=== PATIENT | male | born 1960 ===

== ENCOUNTER 2017-12-10 16:58 | Inpatient (IN) | payer BC ==
[2017-12-10 17:04] VITALS: BMI 32.9
[2017-12-10] MEDS ORDERED: Sodium Chloride 0.9% 1,000 ML IV STA (17:25)
[2017-12-10] MEDS ORDERED: Gentamicin 5 MG in Sodium Chloride 0.9% 100 ML IVPB STA (17:28)
[2017-12-10] MEDS ORDERED: Vancomycin 1gm in NS 250ml 1 GM/250 ML BAG IVPB STA (17:28)
--- NOTE | 2017-12-10 17:33 | ED PDOC ---
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 States that he saw his doctor 4 days ago and was Rx amoxicillin, then on Wednesday developed a red itchy rash to his body and arms. Otherwise denies any CP, SOB, headache, neck pain, back pain, V/D, urinary symptoms. He adds that he called his pmd today for follow up and was advised to go to the ER for further evaluation. Has no other complaints. PMD [facility] Past Medical History - Infectious Disease Hx of Infectious Diseases: None - Tetanus Immunization Tetanus Immunization: Unknown - Cardiac Hx Hyperlipemia: Yes - Hematological/Oncological Hx Cancer: Yes (SKIN) - Psychiatric Hx Depression: No Hx Emotional Abuse: No Hx Physical Abuse: No Hx Substance Use: No - Suicidal Assessment Feels Threatened In Home Enviroment: No Family/Social History Family/Social History: Unknown Family HX Hx Alcohol Use: No Hx Substance Use: No Hx Substance Use Treatment: No Allergies/Home Meds Allergies/Adverse Reactions: Allergies No Known Allergies Allergy (Verified 11/01/13 12:01) Review of Systems - Review of Systems Constitutional: Fevers. absent: Fatigue ENT: Sore Throat. absent: Rhinorrhea, Sinus Congestion Respiratory: Cough. absent: SOB Cardiovascular: absent: Chest Pain, Palpitations Gastrointestinal: absent: Abdominal Pain, Diarrhea, Nausea, Vomiting Genitourinary Male: absent: Dysuria, Frequency, Hematuria Musculoskeletal: absent: Arthralgias, Back Pain, Neck Pain Skin: absent: Rash, Pruritis Neurological: absent: Headache, Dizziness Physical Exam Vital Signs Temp Pulse Resp BP Pulse Ox 12/10/17 17:04 99.0 F 96 H 18 118/77 99 Temperature: Afebrile Blood Pressure: Normal Pulse: Regular Respiratory Rate: Normal Appearance: Positive for: Well-Appearing, Non-Toxic, Comfortable Pain Distress: None (patient is smiling and in good spirits) Mental Status: Positive for: Alert and Oriented X 3 - Systems Exam Head: Present: Atraumatic, Normocephalic Ears: Present: Normal, NORMAL TM, Normal Canal. No: Erythema Mouth: Present: Moist Mucous Membranes Neck: Present: Normal Range of Motion. No: Meningeal Signs, Lymphadenopathy Respiratory/Chest: Present: Clear to Auscultation, Good Air Exchange, Decreased Breath Sounds (to the RLL). No: Accessory Muscle Use, Wheezes, Rales, Rhonchi Cardiovascular: Present: Regular Rate and Rhythm, Normal S1, S2. No: Murmurs Abdomen: Present: Scars (+vertical scar to the L side of the abdomen). No: Tenderness, Distention, Peritoneal Signs, Rebound, Guarding Back: Present: Normal Inspection. No: CVA Tenderness, Midline Tenderness Upper Extremity: Present: Normal Inspection. No: Cyanosis, Edema Lower Extremity: Present: Normal Inspection, Normal ROM, Neurovascularly Intact. No: Edema, Tenderness, Swelling, Temperature Abnormalties Neurological: Present: GCS=15, CN II-XII Intact, Speech Normal, Motor Func Grossly Intact, Normal Sensory Function Skin: Present: Warm, Dry, Rashes (+diffuse erythematous oval shaped lesions of varying sizes to the trunk and b/l UE), Normal Color Psychiatric: Present: Alert, Oriented x 3, Normal Insight, Normal Concentration Medical Decision Making ED Course and Treatment: 12/10/17 17:33 Plan : - Labs - IV - Blood cx - Urine cx - CXR - UA - Influenza - vancomycin IV - gentamycin IV - VBG - NS bolus IV Labs reviewed : wbc 15.5, lactate 1, AST 194, ALT 132, Alk Phos 164, UA +blood/+protien. CXR : multiple patchy lesions to the lungs (no prior comparisons available) Rapid flu : (-) On re-evaluation, patient reports no CP or SOB. On exam, patient remains AAOx3, in no acute distress. VS : T 99 P 89 BP 130/68 R 18 O2sat 98%RA. Diagnostic results d/w the patient in great detail. Considering CXR findings and pending radiology reading of CXR, will treat the patient with possible pneumonia. Diagnosis of fever, possible pneumonia d/w the patient. Based on history, exam and diagnostic results, plan will be for inpatient admission. Case d/w medical center director and with Dr. Palacios, who agree with plan for admission under the hospitalist service. Patient states he fully agrees with and understands further plan of care. I have given the patient opportunity to ask any additional questions. - RAD Interpretation Radiology Orders: 12/10/17 17:24 CHEST TWO VIEWS (PA/LAT) [RAD] Stat - Medication Orders Current Medication Orders: Sodium Chloride (Sodium Chloride 0.9%) 1,000 mls @ 1,000 mls/hr IV .Q1H STA Stop: 12/10/17 18:24 - PA / ADOLESCENT COORDINATOR / Resident Statement MD/DO has reviewed & agrees with the documentation as recorded. Disposition/Present on Arrival - Present on Arrival Any Indicators Present on Arrival: No History of DVT/PE: No History of Uncontrolled Diabetes: No Urinary Catheter: No History of Decub. Ulcer: No History Surgical Site Infection Following: None - Disposition Have Diagnosis and Disposition been Completed?: Yes Diagnosis: Fever, Pneumonia Disposition: HOSPITALIZED Disposition Time: 19:44 Patient Plan: Admission Condition: STABLE
[2017-12-10] MEDS ORDERED: DiphenhydrAMINE 50 mg/ml Inj IVP STA (17:36)
[2017-12-10 17:46] LABS: BASO # 0.03 K/mm3 (0.0-2.0); BASO % 0.2 % (0.0-3.0); EOS # 0.8 (0.0-0.7); EOS % 4.8 % (1.5-5.0); GRAN # 12.85 (1.4-6.5); LYMPH % 6.3 % (22.0-35.0); MEAN CELL VOLUME 88.8 fl (80.0-105.0); MEAN CORPUSCULAR HEMOGLOBIN 30.2 pg (25.0-35.0); MEAN PLATELET VOLUME 9.7 fl (7.0-11.0); MONO # 0.9 (0.1-0.6); MONO % 5.7 % (1.0-6.0); RBC 4.3 10^6/uL (3.5-6.1); RED CELL DISTRIBUTION WIDTH 13.3 % (11.5-14.5); WHITE BLOOD COUNT 15.5 10^3/ul (4.5-11.0)
[2017-12-10 18:15] LABS: VENOUS BLOOD GAS BASE EXCESS 2.2 mmol/L (0.0-2.0); VENOUS BLOOD GAS PO2 37 mm/Hg (30-55); VENOUS BLOOD PH 7.39 (7.32-7.43)
[2017-12-10 18:17] LABS: ALBUMIN 3.7 g/dL (3.0-4.8); CALCIUM 9.4 mg/dL (8.4-10.5)
[2017-12-10 18:47] LABS: PH,URINE 5.5 (4.7-8.0); URINE BILIRUBIN SMALL (NEGATIVE); URINE BLOOD SMALL (NEGATIVE); URINE GLUCOSE (UA) NEGATIVE (NEGATIVE); URINE LEUKOCYTE ESTERASE NEGATIVE Leu/uL (NEGATIVE); URINE PROTEIN 30 mg/dL (<30 mg/dL); URINE UROBILINOGEN >=8.0 E.U./dL (<1 E.U./dL)
[2017-12-10 18:48] LABS: URINE APPEARANCE CLEAR (CLEAR); URINE COLOR DARK YELLOW (YELLOW)
[2017-12-10 19:17] LABS: URINE RBC 20 - 25 /hpf (0-2)
--- NOTE | 2017-12-10 21:13 | CP.PCM.HP ---
<Fran Garcia - Last Filed: 12/10/17 22:46> History of Present Illness - History of Present Illness History of Present Illness: Fran Garcia, PGY-1 History and Physical for Hospitalist Service CC: Fevers, body aches HPI: Patient is a 57 yo male with PMHx of HTN, HLD, hypothyroidism, facial cancer diagnosed in 2010 that metastasized to lungs and currently getting experimental chemotherapy treatments every two weeks in [facility] at [facility] (last dose 12/01), presented to the ED after having a fever for one week, body aches, and generalized fatigue. On Wednesday morning at 3AM, took his temperature and states it was 106 on oral temp. Per , patient took Tylenol 500mg, about 12 pills over three days. He went to his doctor- Dr. Mustafa on Wednesday where he had a fever of 101 in the office. He was put on Amoxicillin 875 mg BID, but patient did not know the source or why Amoxicillin was chosen. He was also found to have transaminitis and was advised to stop taking Tylenol. Pt also reports breaking out in a mildly pruritic rash on Wednesday that began on arms and moved to chest/abdomen/back. Per his at bedside, he has never had a reaction to amoxicillin and family thought it was a rash from the chemo treatments so patient continued to take amoxicillin up to today. also states mel t has been more lethargic and is unsteady on his feet for a few days. 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 ROS: Pt endorses fever, chills, fatigue, night sweats, foot pain, left/right sided abdominal pain. Denies SOB, chest pain, diarrhea, constipation, dysuria, hematuria. In ED got one dose of Gentamycin and Vancomycin, Benadryl, IVF. Past Medical Hx: HTN, hyperlipidemia, hypothyroidism Past Surgical Hx: R zygomatic bone resection. Skin graft from abdomen. 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 He lives with at home. Denies tobacco, etoh, drugs. PMD: Dr. Mustafa Oncologist- [facility] Meds: Fenofibrate 145mg QD Amlodipine 5mg QD Donepezil 10mg HS Levothyroixine 75mg AM Losartan 100 mg QD Present on Admission - Present on Admission Any Indicators Present on Admission: No Review of Systems - Review of Systems Review of Systems: 12 point ROS completed and negative except for description in HPI. Past Patient History - Infectious Disease Hx of Infectious Diseases: None - Tetanus Immunizations Tetanus Immunization: Unknown - Past Social History Smoking Status: Never Smoked - HEMATOLOGICAL/ONCOLOGICAL Hx Cancer: Yes (SKIN) - PSYCHIATRIC Hx Depression: No Hx Emotional Abuse: No Hx Physical Abuse: No Hx Substance Use: No Meds Allergies/Adverse Reactions: Allergies Allergy/AdvReac Type Severity Reaction Status Date / Time No Known Allergies Allergy Verified 11/01/13 12:01 Physical Exam - Constitutional Appears: Well, Non-toxic, No Acute Distress - Head Exam Head Exam: absent: ATRAUMATIC (lack of R cheek fullness 2/2 bone cancer, replaced via fat graft from abdomen), NORMOCEPHALIC - Eye Exam Eye Exam: EOMI, Normal appearance - ENT Exam ENT Exam: Mucous Membranes Moist - Neck Exam Neck exam: Positive for: Full Rom. Negative for: Tenderness, Thyromegaly - Respiratory Exam Respiratory Exam: Clear to Auscultation Bilateral, NORMAL BREATHING PATTERN - Cardiovascular Exam Cardiovascular Exam: RRR, +S1, +S2 - GI/Abdominal Exam Additional comments: large, healed vertical scar L of midline from fat graft Results - Vital Signs Recent Vital Signs: Last Vital Signs Temp 98.9 F 12/10/17 21:05 Pulse 90 12/10/17 21:05 Resp 17 12/10/17 21:05 BP 111/60 12/10/17 21:05 Pulse Ox 96 12/10/17 21:05 - Labs Result Diagrams: 12/10/17 17:19 12/10/17 18:03 Labs: Laboratory Results - last 24 hr 12/10/17 12/10/17 12/10/17 17:19 18:03 18:03 WBC 15.5 H D RBC 4.30 Hgb 13.0 L Hct 38.2 L MCV 88.8 MCH 30.2 MCHC 34.0 RDW 13.3 Plt Count 341 MPV 9.7 Gran % 83.0 H Lymph % (Auto) 6.3 L [place] % (Auto) 5.7 Eos % (Auto) 4.8 Baso % (Auto) 0.2 Gran # 12.85 H Lymph # (Auto) 1.0 L [place] # (Auto) 0.9 H Eos # (Auto) 0.8 H Baso # (Auto) 0.03 pO2 VBG pH VBG pCO2 VBG HCO3 VBG Total CO2 VBG O2 Sat (Calc) VBG Base Excess VBG Potassium Glucose Lactate FiO2 Sodium 135 Potassium 4.2 Chloride 98 Carbon Dioxide 27 Anion Gap 14 BUN 23 H Creatinine 1.5 Est GFR ( Amer) 58 Est GFR (Non-Af Amer) 48 Random Glucose 107 Calcium 9.4 Total Bilirubin 1.4 H Direct Bilirubin 1.0 H AST 194 H D ALT 132 H Alkaline Phosphatase 164 H D Total Protein 7.4 Albumin 3.7 Globulin 3.7 Albumin/Globulin Ratio 1.0 L Venous Blood Potassium Urine Color Urine Appearance Urine pH Ur Specific [place] Urine Protein Urine Glucose (UA) Urine Ketones Urine Blood Urine Nitrate Urine Bilirubin Urine Urobilinogen Ur Leukocyte Esterase Urine RBC Urine WBC Ur Epithelial Cells Influenza Typ A,B (EIA) 12/10/17 12/10/17 12/10/17 18:12 18:40 18:43 WBC RBC Hgb Hct MCV MCH MCHC RDW Plt Count MPV Gran % Lymph % (Auto) [place] % (Auto) Eos % (Auto) Baso % (Auto) Gran # Lymph # (Auto) [place] # (Auto) Eos # (Auto) Baso # (Auto) pO2 37 VBG pH 7.39 VBG pCO2 46.0 VBG HCO3 27.8 VBG Total CO2 29.2 H VBG O2 Sat (Calc) 74.9 H VBG Base Excess 2.2 H VBG Potassium 4.3 Glucose 102 Lactate 1.0 FiO2 21.0 Sodium 133.0 Potassium Chloride 101.0 Carbon Dioxide Anion Gap BUN Creatinine Est GFR ( Amer) Est GFR (Non-Af Amer) Random Glucose Calcium Total Bilirubin Direct Bilirubin AST ALT Alkaline Phosphatase Total Protein Albumin Globulin Albumin/Globulin Ratio Venous Blood Potassium 4.3 Urine Color Dark yellow Urine Appearance Clear Urine pH 5.5 Ur Specific [place] 1.025 Urine Protein 30 H Urine Glucose (UA) Negative Urine Ketones Negative Urine Blood Small H Urine Nitrate Negative Urine Bilirubin Small H Urine Urobilinogen >=8.0 Ur Leukocyte Esterase Negative Urine RBC 20 - 25 Urine WBC 5 - 10 Ur Epithelial Cells 6 - 8 Influenza Typ A,B (EIA) Negative for flu a/b Assessment & Plan - Assessment and Plan (Free Text) Assessment: Assessment Pt is a 57 yo male with PMH significant for HTN, HLD, hypothyroidism, facial bone cancer with bilateral lung mets presenting with generalized fatigue, body aches, and hx of fever for one week, body rash, and transaminitis. Body aches, recent hx of fever, s/p chemo 9 days ago reported fever of 106 at home, 101 in doctors office on Thursday 12/07 Currently 98.9 WBC 15.5 UA- 30 protein, small blood and bilirubin, no nitrates or leuk esterase F/u CXR final read. Bilateral fluffy infiltrates appreciated on initial look. Pulm consulted- Dr. Edmond ojeda appreciated Consulted ID Dr. Eddie ojeda appreciated Vanco/zosyn Ibuprofin PRN, IVF @ 75 cc/hr f/u blood cx f/u urine cx f/u procalcitonin level Maculopapular erythematous raised rash on arms and torso benedryl 25 mg PO q6 PRN d/c amoxicillin f/u blood cx f/u urine cx Transaminitis AST 194 ALT 132 Alk Phos 164 f/u on hepatitis panel, GGTP Consulted GI Dr South ojeda appreciated f/u Abdominal US Avoid hepatotoxic drugs, will hold Losartan Facial Bone cancer with metastases to bilateral lungs F/U Pa/Lat CXR in AM as comparison Heme/onc consult- Dr Milagros ojeda appreciated Hyperlipidemia f/u lipid panel and a1c Hypothyroidism Continue Levothyroxine 75 QD f/u TFT Ppx Heparin Q8 Pepcid Patient seen, case reviewed and plan approved by Dr. Palacios. Fran Garcia, PGY-1 <Pallavi Palacios - Last Filed: 12/11/17 02:55> Results - Vital Signs Recent Vital Signs: Last Vital Signs Temp 98.9 F 12/10/17 21:05 Pulse 90 12/10/17 21:05 Resp 20 12/10/17 22:29 BP 111/60 12/10/17 21:05 Pulse Ox 96 12/10/17 21:05 - Labs Result Diagrams: 12/10/17 17:19 12/10/17 18:03 Labs: Laboratory Results - last 24 hr 1012/10/17 12/10/17 17:19 18:00 18:03 WBC 15.5 H D RBC 4.30 Hgb 13.0 L Hct 38.2 L MCV 88.8 MCH 30.2 MCHC 34.0 RDW 13.3 Plt Count 341 MPV 9.7 Gran % 83.0 H Lymph % (Auto) 6.3 L [place] % (Auto) 5.7 Eos % (Auto) 4.8 Baso % (Auto) 0.2 Gran # 12.85 H Lymph # (Auto) 1.0 L [place] # (Auto) 0.9 H Eos # (Auto) 0.8 H Baso # (Auto) 0.03 pO2 VBG pH VBG pCO2 VBG HCO3 VBG Total CO2 VBG O2 Sat (Calc) VBG Base Excess VBG Potassium Glucose Lactate FiO2 Sodium 135 Potassium 4.2 Chloride 98 Carbon Dioxide 27 Anion Gap 14 BUN 23 H Creatinine 1.5 Est GFR ( Amer) 58 Est GFR (Non-Af Amer) 48 POC Glucose (mg/dL) Random Glucose 107 Calcium 9.4 Total Bilirubin 1.4 H Direct Bilirubin GGT 225 H AST 194 H D ALT 132 H Alkaline Phosphatase 164 H D Total Protein 7.4 Albumin 3.7 Globulin 3.7 Albumin/Globulin Ratio 1.0 L Venous Blood Potassium Urine Color Urine Appearance Urine pH Ur Specific [place] Urine Protein Urine Glucose (UA) Urine Ketones Urine Blood Urine Nitrate Urine Bilirubin Urine Urobilinogen Ur Leukocyte Esterase Urine RBC Urine WBC Ur Epithelial Cells Influenza Typ A,B (EIA) 12/10/17 12/10/17 12/10/17 18:03 18:12 18:40 WBC RBC Hgb Hct MCV MCH MCHC RDW Plt Count MPV Gran % Lymph % (Auto) [place] % (Auto) Eos % (Auto) Baso % (Auto) Gran # Lymph # (Auto) [place] # (Auto) Eos # (Auto) Baso # (Auto) pO2 37 VBG pH 7.39 VBG pCO2 46.0 VBG HCO3 27.8 VBG Total CO2 29.2 H VBG O2 Sat (Calc) 74.9 H VBG Base Excess 2.2 H VBG Potassium 4.3 Glucose 102 Lactate 1.0 FiO2 21.0 Sodium 133.0 Potassium Chloride 101.0 Carbon Dioxide Anion Gap BUN Creatinine Est GFR ( Amer) Est GFR (Non-Af Amer) POC Glucose (mg/dL) Random Glucose Calcium Total Bilirubin Direct Bilirubin 1.0 H GGT AST ALT Alkaline Phosphatase Total Protein Albumin Globulin Albumin/Globulin Ratio Venous Blood Potassium 4.3 Urine Color Dark yellow Urine Appearance Clear Urine pH 5.5 Ur Specific [place] 1.025 Urine Protein 30 H Urine Glucose (UA) Negative Urine Ketones Negative Urine Blood Small H Urine Nitrate Negative Urine Bilirubin Small H Urine Urobilinogen >=8.0 Ur Leukocyte Esterase Negative Urine RBC 20 - 25 Urine WBC 5 - 10 Ur Epithelial Cells 6 - 8 Influenza Typ A,B (EIA) 12/10/17 12/11/17 18:43 01:22 WBC RBC Hgb Hct MCV MCH MCHC RDW Plt Count MPV Gran % Lymph % (Auto) [place] % (Auto) Eos % (Auto) Baso % (Auto) Gran # Lymph # (Auto) [place] # (Auto) Eos # (Auto) Baso # (Auto) pO2 VBG pH VBG pCO2 VBG HCO3 VBG Total CO2 VBG O2 Sat (Calc) VBG Base Excess VBG Potassium Glucose Lactate FiO2 Sodium Potassium Chloride Carbon Dioxide Anion Gap BUN Creatinine Est GFR ( Amer) Est GFR (Non-Af Amer) POC Glucose (mg/dL) 109 Random Glucose Calcium Total Bilirubin Direct Bilirubin GGT AST ALT Alkaline Phosphatase Total Protein Albumin Globulin Albumin/Globulin Ratio Venous Blood Potassium Urine Color Urine Appearance Urine pH Ur Specific [place] Urine Protein Urine Glucose (UA) Urine Ketones Urine Blood Urine Nitrate Urine Bilirubin Urine Urobilinogen Ur Leukocyte Esterase Urine RBC Urine WBC Ur Epithelial Cells Influenza Typ A,B (EIA) Negative for flu a/b Attending/Attestation - Attestation I have personally seen and examined this patient.: Yes I have fully participated in the care of the patient.: Yes I have reviewed all pertinent clinical information: Yes Notes (Text): Patient was seen when he was in bed # 096-91. Medical record was reviewed. Agree with history , physical examination, assessment and plan.
[2017-12-11] MEDS: Piperacillin/Tazobact 3.375 gm 100 ML IVPB SCH ×2 (00:50→06:55)
[2017-12-11] MEDS: Sodium Chloride 0.9% 1,000 ML IV SCH (00:52)
[2017-12-11] MEDS: Insulin Lispro (humaLOG) LOW Coverage SC SCH ×5 (01:23→21:53)
[2017-12-11] MEDS: Levothyroxine 75 MCG TAB PO SCH (06:56)
[2017-12-11 07:53] LABS: BASO # 0.04 K/mm3 (0.0-2.0); BASO % 0.3 % (0.0-3.0); EOS # 0.9 (0.0-0.7); EOS % 6.4 % (1.5-5.0); GRAN # 11.59 (1.4-6.5); GRAN % 81.2 % (50.0-68.0); HEMOGLOBIN 10.9 g/dL (14.0-18.0); LYMPH # 1.1 (1.2-3.4); LYMPH % 7.6 % (22.0-35.0); MEAN CELL VOLUME 89.5 fl (80.0-105.0); MEAN CORPUSCULAR HEMOGLOBIN 29.5 pg (25.0-35.0); MEAN CORPUSCULAR HGB CONC 32.9 g/dl (31.0-37.0); MEAN PLATELET VOLUME 9.5 fl (7.0-11.0); MONO # 0.6 (0.1-0.6); MONO % 4.5 % (1.0-6.0); RBC 3.7 10^6/uL (3.5-6.1); RED CELL DISTRIBUTION WIDTH 13.5 % (11.5-14.5); WHITE BLOOD COUNT 14.3 10^3/ul (4.5-11.0)
[2017-12-11 08:08] LABS: ALB/GLOB RATIO 0.9 (1.1-1.8); ALBUMIN 2.9 g/dL (3.0-4.8); ALT/SGPT 113 U/L (7-56); AST/SGOT 97 U/L (17-59); BLOOD UREA NITROGEN 19 mg/dL (7-21); CALCIUM 8.3 mg/dL (8.4-10.5); GFR NON-AFRICAN AMERICAN 57; HDL CHOLESTEROL 18 mg/dL (29-60)
[2017-12-11 08:14] LABS: LDL CHOLESTEROL 60 mg/dL (0-129)
[2017-12-11 08:19] LABS: FREE T4 0.66 ng/dL (0.78-2.19)
[2017-12-11 08:32] VITALS: RESP 20
--- NOTE | 2017-12-11 09:49 | RAD ---
Date of service: 12/10/2017 HISTORY: FEVER COMPARISON: No prior. TECHNIQUE: Chest PA and lateral FINDINGS: LUNGS: Innumerable pulmonary masses and nodules consistent with metastatic disease. PLEURA: No significant pleural effusion identified. No pneumothorax apparent. CARDIOVASCULAR: No atherosclerotic calcification present No radiographic findings to suggest acute or significant cardiovascular disease. OSSEOUS STRUCTURES: No significant abnormalities. VISUALIZED UPPER ABDOMEN: Normal. OTHER FINDINGS: None. IMPRESSION: Pulmonary nodules/masses consistent with metastatic disease. No suspicious pulmonary infiltrates.
[2017-12-11] MEDS ORDERED: Vancomycin 1gm in NS 250ml 1 GM/250 ML BAG IVPB SCH (10:00)
[2017-12-11] MEDS ORDERED: Sodium Chloride 0.9% 1,000 ML IV STA (10:00)
--- NOTE | 2017-12-11 11:05 | CP.PCM.PN ---
<Carlito Harrington - Last Filed: 12/11/17 11:02> Subjective - Date & Time of Evaluation Date of Evaluation: 12/11/17 Time of Evaluation: 11:02 - Subjective Subjective: Medicine Progress Note for Dr. Godfrey -- Lane Harrington DO PGY2 Patient seen and examined at bedside. Patient complaining of left shoulder pain, but denies trauma. Patient's states that it could have been a side effect from chemotherapy. Patient states that rash on b/l arms started after amoxicillin use, which patient was given because of low grade fever at home. Patient denies CP, SOB, cough, n/v/d, abdominal pain, fever, chills, HATHAWAY, dizziness, hematemesis, BRBPR, or melena. Objective - Vital Signs/Intake and Output Vital Signs (last 24 hours): Temp Pulse Resp BP Pulse Ox 98.8 F 84 20 111/68 95 12/11/17 08:31 12/11/17 08:31 12/11/17 08:31 12/11/17 08:31 12/11/17 08:31 Intake and Output: 12/11/17 12/11/17 06:59 18:59 Intake Total 490 Output Total 650 Balance -160 - Medications Medications: Current Medications Diphenhydramine HCl (Benadryl) 25 mg PO Q6 PRN PRN Reason: Allergy symptoms Donepezil HCl (Aricept) 10 mg PO HS [facility] Last Admin: 12/11/17 00:49 Dose: 10 mg Famotidine (Pepcid) 20 mg PO 1000,2200 A[facility] Last Admin: 12/11/17 10:00 Dose: 20 mg Heparin Sodium (Porcine) (Heparin) 5,000 units SC Q8H ASAF; Protocol Last Admin: 12/11/17 07:43 Dose: 5,000 units Sodium Chloride (Sodium Chloride 0.9%) 1,000 mls @ 75 mls/hr IV .[id number] ASAF Last Admin: 12/11/17 00:52 Dose: 75 mls/hr Cefepime HCl (Maxipime 1gm) 1 gm in 100 mls @ 25 mls/hr IVPB Q8 ASAF; Protocol Vancomycin HCl (Vancomycin 1gm) 1 gm in 250 mls @ 167 mls/hr IVPB Q12H ASAF; Protocol Ibuprofen (Motrin Tab) 600 mg PO Q6H PRN PRN Reason: Fever >100.4 F Insulin Human Lispro (Humalog Low) 0 units SC ACHS [facility]; Protocol Last Admin: 12/11/17 01:23 Dose: Not Given Levothyroxine Sodium (Synthroid) 75 mcg PO 0600 [facility] Last Admin: 12/11/17 06:56 Dose: 75 mcg Loratadine (Claritin) 10 mg PO DAILY [facility] Last Admin: 12/11/17 10:08 Dose: 10 mg - Labs Labs: 12/11/17 07:00 12/11/17 07:00 - Constitutional Appears: No Acute Distress - Head Exam Head Exam: NORMAL INSPECTION - Eye Exam Eye Exam: Normal appearance - ENT Exam ENT Exam: Mucous Membranes Moist - Respiratory Exam Respiratory Exam: Clear to Ausculation Bilateral. absent: Rales, Rhonchi, Wheezes - Cardiovascular Exam Cardiovascular Exam: RRR, +S1, +S2. absent: Clicks, Gallop, Rubs, Murmur - GI/Abdominal Exam GI & Abdominal Exam: Soft. 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 Today, patient complaining of left shoulder pain, which a shoulder xray has been ordered. CT of the chest/abdomen/pelvis has also been ordered due to his history of metastasis. Plan: Leukocytosis - Subjective fever reported at home - Afebrile since admission - Leukocytosis downtrending - UA negative for UTI - CXR shows no active disease - F/u urine strep pneumo, legionella - f/u blood cx - f/u urine cx - f/u procalcitonin level - Cefepime, Azithromycin, and Vanco per pulm - Solumedrol 20q12 per pulm - Ibuprofen prn for fever - Cont IVF - Pulm consulted - ID consulted Facial Bone cancer with metastases to bilateral lungs - S/p chemotherapy 10 days ago - CXR shows no acute disease, but shows innumerable pulmonary masses and nodules consistent with metstatic disease - CT chest/abdomen/pelvis with contrast ordered - Heme/onc consulted - Pulm consulted Left Shoulder Pain - Possibly side effect 2/2 chemotherapy - No trauma reported - Left shoulder xray ordered Transaminitis - Possibly 2/2 amoxicillin use - LFT's downtrending - f/u on hepatitis panel - Abdominal US negative - Avoid hepatotoxic drugs, will hold Losartan - GI consulted Maculopapular rash on arms and torso - Benedryl 25 mg PO q6 PRN - Likely 2/2 amoxicillin, which has been d/c - f/u blood cx - f/u urine cx H/o Hyperlipidemia - HDL low 18, lipid panel otherwise unremarkable H/o Hypothyroidism - Continue Levothyroxine 75 QD GI/DVT PPx - Heparin - Pepcid Patient seen and discussed in detail with Dr. Godfrey. Lane Harrington DO PGY2 <Mohan Godfrey - Last Filed: 12/12/17 13:49> Objective - Vital Signs/Intake and Output Vital Signs (last 24 hours): Temp Pulse Resp BP Pulse Ox 98 F 96 H 20 133/89 97 12/12/17 07:42 12/12/17 07:42 12/12/17 07:42 12/12/17 07:42 12/12/17 07:42 Intake and Output: 12/12/17 12/12/17 06:59 18:59 Intake Total 1260 Output Total 300 Balance 960 - Medications Medications: Current Medications Diphenhydramine HCl (Benadryl) 25 mg PO Q6 PRN PRN Reason: Allergy symptoms Donepezil HCl (Aricept) 10 mg PO HS [facility]F Last Admin: 12/11/17 21:50 Dose: 10 mg Doxycycline Hyclate (Doryx) 100 mg PO Q12 ASAF; Protocol Stop: 12/21/17 10:01 Last Admin: 12/12/17 10:40 Dose: 100 mg Famotidine (Pepcid) 20 mg PO 1000,2200 ASAF Last Admin: 12/12/17 10:40 Dose: 20 mg Heparin Sodium (Porcine) (Heparin) 5,000 units SC Q8H [facility]; Protocol Last Admin: 12/12/17 13:09 Dose: 5,000 units Sodium Chloride (Sodium Chloride 0.9%) 1,000 mls @ 75 mls/hr IV .[id number] ASAF Last Admin: 12/12/17 00:00 Dose: 75 mls/hr Cefepime HCl (Maxipime 1gm) 1 gm in 100 mls @ 25 mls/hr IVPB Q8 ASAF; Protocol Last Admin: 12/12/17 13:10 Dose: 25 mls/hr Vancomycin HCl (Vancomycin 1gm) 1 gm in 250 mls @ 167 mls/hr IVPB Q12H [facility]; Protocol Last Admin: 12/12/17 10:42 Dose: 167 mls/hr Ibuprofen (Motrin Tab) 600 mg PO Q6H PRN PRN Reason: Fever >100.4 F Last Admin: 12/11/17 17:10 Dose: 600 mg Insulin Human Lispro (Humalog Low) 0 units SC ACHS [facility]; Protocol Last Admin: 12/12/17 13:11 Dose: 1 unit Levothyroxine Sodium (Synthroid) 75 mcg PO 0600 [facility] Last Admin: 12/12/17 05:46 Dose: 75 mcg Loratadine (Claritin) 10 mg PO DAILY [facility] Last Admin: 12/12/17 10:39 Dose: 10 mg Methylprednisolone (Solu-Medrol) 20 mg IVP Q12 ASAF Last Admin: 12/12/17 10:40 Dose: 20 mg - Labs Labs: 12/12/17 07:00 12/12/17 07:00 Attending/Attestation - Attestation I have personally seen and examined this patient.: Yes I have fully participated in the care of the patient.: Yes I have reviewed all pertinent clinical information, including history, physical exam and plan: Yes Notes (Text): 12/12/17 13:43 Medical record note made by the resident after discussion with my direction and input after the patient was personally seen and examined by me. I have reviewed the chart and agree that the record accurately reflects by personal performance of the history, physical exam, data review, and medical decision-making, in the course for the patient. I have also personally directed the plan of care. 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 Continue antibiotics as per ID We will follow up cultures.
--- NOTE | 2017-12-11 11:07 | US ---
Date of service: 12/11/2017 HISTORY: elevated LFTs COMPARISON: None. TECHNIQUE: Sonographic evaluation of the abdomen. FINDINGS: LIVER: Measures 17.3 cm. Patent portal vein. Portal venous flow: Hepatopetal. Unremarkable echogenicity of the liver parenchyma. No mass. No intrahepatic bile duct dilatation. GALLBLADDER: Unremarkable. No gallstones. COMMON BILE DUCT: Measures 4.6 mm. No stones. No dilatation. PANCREAS: Unremarkable as visualized. No mass. No ductal dilatation. RIGHT KIDNEY: Measures 4.9 x 9.8cm. Normal echogenicity. No calculus, mass, or hydronephrosis. LEFT KIDNEY: Measures 5.6 x 11.0cm. Normal echogenicity. No calculus, mass, or hydronephrosis. SPLEEN: Normal in size and contour. No mass. AORTA: No aneurysmal dilatation. IVC: Unremarkable. OTHER FINDINGS: None. IMPRESSION: Unremarkable abdominal sonogram.
[2017-12-11] MEDS ORDERED: Azithromycin 500MG/NS 250ml 500 MG/250 ML BAG IVPB SCH (11:15)
[2017-12-11 11:44] LABS: B-TYPE NATRIURETIC PEPTIDE 55.2 pg/mL (0-450); TROPONIN I < 0.01 ng/mL
[2017-12-11] MEDS ORDERED: Iohexol 350 MG/100 ML VIAL ONE (11:57)
--- NOTE | 2017-12-11 11:58 | CARD ---
APPROVED REPORT Date of service: 12/10/2017 EKG Measurement Heart [id number] OH 110P-17 [id number] <Conclusion> Sinus rhythm with short OH Nonspecific T wave abnormality Abnormal ECG
--- NOTE | 2017-12-11 13:55 | CT ---
Date of service: 12/11/2017 PROCEDURE: CT Chest, Abdomen and Pelvis with intravenous contrast HISTORY: mets COMPARISON: None available. TECHNIQUE: IV dose administered: 100 cc Omnipaque 350 Radiation dose: Total exam DLP = 1022.09 mGy-cm. This CT exam was performed using one or more of the following dose reduction techniques: Automated exposure control, adjustment of the mA and/or kV according to patient size, and/or use of iterative reconstruction technique. FINDINGS: CT CHEST WITH CONTRAST: LUNGS: Innumerable pulmonary masses vary in size from left stent 1 cm to 3.2 cm. Several of the smaller masses or cavitary. MEDIASTINUM: Unremarkable. Normal caliber aorta and pulmonary arterial trunk. No aortic dissection. Normal size heart. LYMPH NODES: Small mediastinal and hilar lymph nodes identified. There is a tumor mass adjacent to the distal esophagus although this likely in the azygoesophageal recess of the right lower lobe. PLEURA: Unremarkable. No pneumothorax. No pleural fluid. BONES: Unremarkable. OTHER FINDINGS: None. CT ABDOMEN AND PELVIS: LIVER: Hepatic steatosis. Variable contrast-enhancing characteristics not likely reflective of tumor. These are most notable in the right hepatic lobe. GALLBLADDER AND BILE DUCTS: Unremarkable. PANCREAS: Unremarkable. No gross lesion or ductal dilatation. SPLEEN: Unremarkable. ADRENALS: Unremarkable. No mass. KIDNEYS AND URETERS: Unremarkable. No hydronephrosis. No solid mass. VASCULATURE: no atherosclerotic calcification or mural plaque present. Unremarkable. No aortic aneurysm. BOWEL: Unremarkable. No obstruction. No gross mural thickening. APPENDIX: Normal appendix. PERITONEUM: Right lower quadrant inflammatory changes extend from the cecum toward to the mesentery. The overall findings are likely infectious/inflammatory. LYMPH NODES: Unremarkable. No enlarged lymph nodes. BLADDER: Unremarkable. REPRODUCTIVE: Unremarkable. BONES: No acute fracture. OTHER FINDINGS: Asymmetry of the rectus muscle on the right compared to left. This extends over a cephalocaudal distance of approximately 20 cm. That portion which extends into the impresses upon the bladder although there is a well-defined tissue plane it from the urinary bladder. Without go measurements at this level 2.6 x 3.7 cm. This is not atypical midline mass and does not possesses typical characteristics of a urachal remnant tumor. Rectus abdominus tumors include malignant fibrous histiocytoma and desmoid tumors originating from the rectus abdominus muscle. More benign etiologies include desmoid type fibromatosis. IMPRESSION: Extensive pulmonary metastatic disease. Abnormal right rectus abdominus muscle particularly at the level of the bladder highly suspicious for neoplasm. Range of tumors include sarcoma, malignant fibrous histiocytoma and desmoid tumors. The mass is amenable to biopsy if clinically indicated.
--- NOTE | 2017-12-11 14:16 | RAD ---
Date of service: 12/11/2017 PROCEDURE: Radiographs of the Left Shoulder HISTORY: shoulder pain COMPARISON: No prior. FINDINGS: BONES: Normal. No fracture. JOINTS: Normal. Glenohumeral and acromioclavicular joints preserved. No osteoarthritis. SOFT TISSUES: Normal. OTHER FINDINGS: Multiple pulmonary masses a finding confirmed on recent cross-sectional imaging study IMPRESSION: Normal radiographs of the left shoulder.
[2017-12-11 14:25] LABS: PH,URINE 5.5 (4.7-8.0); URINE APPEARANCE CLEAR (CLEAR); URINE BILIRUBIN NEGATIVE (NEGATIVE); URINE BLOOD TRACE-INTACT (NEGATIVE); URINE COLOR YELLOW (YELLOW); URINE GLUCOSE (UA) NEGATIVE (NEGATIVE); URINE LEUKOCYTE ESTERASE NEGATIVE Leu/uL (NEGATIVE); URINE PROTEIN NEGATIVE mg/dL (<30 mg/dL); URINE UROBILINOGEN >=8.0 E.U./dL (<1 E.U./dL)
[2017-12-11 14:33] LABS: URINE BACTERIA NEG (NEG); URINE EPITHELIAL CELLS 0 - 2 /hpf (0-5); URINE RBC 0 - 2 /hpf (0-2); URINE WBC 0 - 2 /hpf (0-6)
[2017-12-11] MEDS: Cefepime 1gm in NS 100ml 1 GM/100 ML BAG IVPB SCH ×2 (14:38→21:51)
[2017-12-11] MEDS: MethylPREDNISolone 40 mg Vial IVP SCH ×2 (14:38→21:51)
[2017-12-11] MEDS: Vancomycin 1gm in NS 250ml 1 GM/250 ML BAG IVPB SCH (14:39)
--- NOTE | 2017-12-11 17:00 | CARD ---
APPROVED REPORT Date of service: 12/11/2017 EXAM: Two-dimensional and M-mode echocardiogram with Doppler and color Doppler. INDICATION Fever, pneumonia 2D DIMENSIONS Left Atrium (2D)3.6 (1.6-4.0cm)IVSd1.0 (0.7-1.1cm) Aortic Root (2D)3.2 (2.0-3.7cm)LVDd4.5 (3.9-5.9cm) PWd0.8 (0.7-1.1cm)LVDs2.6 (2.5-4.0cm) FS (%) 42.3 %LVEF (%)73.4 (>50%) M-Mode DIMENSIONS Aortic Cusp Exc.2.10 (1.5-2.0cm) Aortic Valve AoV Peak Oxhudhaz356.0cm/Carrie Peak GR.27mmHg Mitral Valve MV E Rqypbhcr445.0cm/sMV A Uzgtkqsq19.3cm/sE/A ratio1.3 TDI Lateral E' Peak V11.10cm/sMedial E' Peak V10.80cm/sE/Lateral E'11.5 E/Medial E'11.9 Pulmonary Valve PV Peak Ghucxplm965.0cm/sPV Peak Grad.7mmHg Tricuspid Valve TR Peak Knitdoxn815dq/sRAP KFSSMOKW4cqXhDA Peak Gr.29mmHg [id number] LEFT VENTRICLE The left ventricle is normal size. There is normal left ventricular wall thickness. The left ventricular function is normal. The left ventricular ejection fraction is within the normal range. There is normal LV segmental wall motion. The left ventricular diastolic function is normal. RIGHT VENTRICLE The right ventricle is normal size. There is normal right ventricular wall thickness. The right ventricular systolic function is normal. ATRIA The left atrium size is normal. The right atrium size is normal. AORTIC VALVE The aortic valve is not well visualized. There is trace aortic regurgitation. There is no aortic valvular stenosis. MITRAL VALVE The mitral valve is mildly thickened. Mitral regurgitation is trace. There is no mitral valve stenosis. TRICUSPID VALVE The tricuspid valve is normal in structure. There is trace tricuspid regurgitation. PULMONIC VALVE The pulmonary valve is normal in structure. There is trace pulmonic valvular regurgitation. GREAT VESSELS The aortic root is normal in size. <Conclusion> The left ventricle is normal size. There is normal left ventricular wall thickness. The left ventricular function is normal. The left ventricular ejection fraction is within the normal range. There is normal LV segmental wall motion. The left ventricular diastolic function is normal. No vegitation seen
--- NOTE | 2017-12-11 17:00 | CON ---
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 Reportedly, the patient had a fever of 106 night prior to admission to the hospital. The patient received Tylenol [address] Mustafa saw the patient morning after the fever was noted and the temperature in the Dr. Mustafa's office was 101 as well. The patient was on amoxicillin, however it did not help much. The patient did also have some maculopapular rash; however, the patient has been taking penicillin antibiotics in the past and never noted penicillin allergy before, thus he does not think this reaction is to amoxicillin. No chest pain, no shortness of breath, no diarrhea or constipation, no dysuria or hematuria. The patient received one dose of gentamicin and vancomycin in the emergency room. PAST MEDICAL HISTORY: Hypertension, hyperlipidemia, hypothyroidism, facial cancer with mets to lungs and ? brain. FAMILY HISTORY: Noncontributory. SOCIAL HISTORY: The patient is an ex-smoker. He smoked for many years, however quit in 2010. No alcohol or illicit drug abuse. HOME MEDICATIONS: Fenofibrate, amlodipine, donepezil, levothyroxine, losartan. CURRENT MEDICATIONS: Benadryl p.r.n., Aricept, Pepcid, heparin subcu, ibuprofen p.r.n., regular insulin sliding scale low protocol, levothyroxine, Claritin, cefepime, Solu-Medrol 20 mg IV q. 12, vancomycin, azithromycin. ALLERGIES: NKDA. REVIEW OF SYSTEMS: Review of 12-organ systems other than mentioned in the history of present illness is negative. PHYSICAL EXAMINATION: Temperature 98.8, blood pressure 111/68, respiratory rate 20, oxygen saturation 95% on room air, heart rate 84. ENT: Head and neck atraumatic. LUNGS: Clear to auscultation bilaterally. HEART: Regular rate, S1 and S2 normal. ABDOMEN: Soft, nontender and nondistended. MUSCULOSKELETAL: No C/E. NEURO: The patient moves all extremities spontaneously. SKIN: Moist. PSYCH: The patient is alert, awake and oriented x3. Subjectively doing better. LABORATORY DATA: Influenza EIA negative. WBC 14.3, down from 15.5; hemoglobin 10.9, down from 13; platelet count 320. Lactic acid 1. Sodium 136, potassium 4.4, chloride 104, carbon dioxide 23, BUN 19, creatinine 1.3, down from 1.5, glucose 87. CPK 116. AST 97, ALT 113, total bilirubin 1.2. Free T4 is 0.66 and TSH is 2.55. Triglycerides 258. Chest x-ray showed some pulmonary nodules bilaterally with some increased interstitial markings and ? infiltrates. EKG showed no specific ischemic changes and no significant QTc prolongation. ASSESSMENT/PLAN: This is a 57-year-old gentleman who presented with community-acquired pneumonia in the setting of underlying cancer and chemotherapy treatment. At present time, we will proceed with septic workup including blood culture, urine culture, sputum culture, procalcitonin, urine for Legionella and streptococcal antigen. I will start the patient on low-dose steroids and order a CRP. To rule out other contributing comorbidities, I will order echocardiogram, troponin and proBNP. I will start the patient on cefepime extended infusion, azithromycin, and vancomycin. ID consult is pending. The patient is subjectively doing somewhat better. The patient is going for a CT chest, abdomen and pelvis ordered by primary team with IV contrast. At present time, renal function showed some signs of improvement. I would continue with some hydration until contrast-induced nephropathy ruled out after CT with IV contrast. After that, I would stick with conservative fluid management. We will continue with deep venous thrombosis and GI prophylaxis. ccm time 40 min John Butler MD TATYANA
--- NOTE | 2017-12-11 21:14 | CON ---
DATE OF CONSULT: 12/11/2017 REQUESTING PHYSICIAN: Pura Krueger MD REASON FOR CONSULT: I have been asked to see this unfortunate 57-year-old male with known history of facial cancer diagnosed in 2010 with metastasis to the lung, currently being followed that [facility] in [facility], who comes to the hospital with a 1-week history of fever, generalized fatigue and myalgias. I have been asked to see this patient for elevated liver enzymes. The patient apparently had a fever to 106 several days ago. The patient took Tylenol and was given amoxicillin by his primary care doctor. He was found to have elevated liver enzymes and advised to stop taking Tylenol. The patient also reports a rash, which started on his arm about 4 days ago. PAST MEDICAL HISTORY: Notable for facial cancer, hypertension, hypothyroidism, hyperlipidemia. PAST SURGICAL HISTORY: Notable for removal of his right zygomatic arch with skin graft. FAMILY HISTORY: Noncontributory. SOCIAL HISTORY: Denies cigarette smoking or alcohol use. MEDICATIONS AT HOME: Unobtainable. REVIEW OF SYSTEMS: A 14-point review of systems is notable for fever and a rash as well as muscle aches and fatigue. PHYSICAL EXAMINATION: Well-developed male sitting in a chair in no acute distress. Vital signs reveal temperature of 98.8, blood pressure 111/68, heart rate of 84. HEENT reveal sclerae to be white. Conjunctivae pink. Neck is supple. Chest reveal lungs to show scattered rhonchi. Heart exam reveals a regular rate and rhythm. Abdomen is soft. There is a well-healed left midline scar. Extremities show a papular rash on his left forearm. LABORATORY DATA: White blood cell count 14.3, hemoglobin 10.9, platelet count 320,000. Chemistries reveal calcium of 8.3, magnesium 2.3. AST 97, ALT 113, alkaline phosphatase 149, total bilirubin is normal. Ultrasound of the abdomen is negative for any liver masses. IMPRESSION: This is a 57-year-old male with a history of facial cancer with metastasis to the lungs, [place] [facility] [place] for a [place]. He also has a papular rash on his arm. His liver enzymes are mildly elevated. Ultrasound of the abdomen is negative for any mass, must still consider liver metastasis. RECOMMENDATIONS: 1. Await results of CT scan of the abdomen and pelvis to look for liver metastasis. 2. Check hepatitis serology. 3. Hold further acetaminophen. I doubt that this is acetaminophen toxicity. Shashi Garrido MD
[2017-12-12] MEDS: Sodium Chloride 0.9% 1,000 ML IV SCH
[2017-12-12] MEDS: Vancomycin 1gm in NS 250ml 1 GM/250 ML BAG IVPB SCH ×2 (01:32→10:42)
--- NOTE | 2017-12-12 04:02 | CON ---
DATE: 12/11/2017 LOCATION: The patient was seen earlier today in room 360, bed 2. CHIEF COMPLAINT: Fever times several days. 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 Currently, the patient is on chemo. Last treatment was a week ago, admitted with a fever associated with generalized aches and pains and cough. He was given amoxicillin as outpatient, developed an itchy rash on body and arms. The patient denies any headaches, any chest pain, any new back pain, any abdominal pain, diarrhea or constipation. No bright red blood per rectum. No melena. No dysuria. REVIEW OF SYSTEMS: Reveals a 12-point review of systems is performed. 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 PAST SURGICAL HISTORY: Significant for facial surgery. ALLERGIES: THE PATIENT HAS NO KNOWN ALLERGIES. MEDICATIONS: At home are reviewed. PHYSICAL EXAMINATION GENERAL: The patient in bed, in no acute distress, however, weak. VITAL SIGNS: The temperature is 98, T-max is 99. Blood pressure is 109/50, heart rate is 93, respiratory rate of 20. HEENT: Noted. Facial deformity from the malignancy is noted. NECK: Supple. CARDIOPULMONARY: Heart exam is normal S1, S2. LUNGS: Decreased breath sounds. ABDOMEN: Soft, nontender. LABORATORY DATA: Reveals the patient has a white count of 15,500, hemoglobin 13, and the platelets are 341. Chemistries reveal the patient to have a BUN of 19, creatinine of 1.3. AST is 97, ALT is 113, alk phos is 149. BNP is 55. Urinalysis is noted, 5-10 wbc's. Serology is reviewed and claims as negative. Microbiology reviewed with the patient. Cultures are not available at this time. The patient had a CAT scan of the chest and abdomen and pelvis which revealed the patient to have a hepatic steatosis gallbladder, pancreas, and spleen. The lungs have pulmonary masses, vary in size, numerous and several of smaller masses and cavitary. Extensive pulmonary metastatic disease, abnormal right rectus abdominis muscle, suspicious for malignancy. The patient also had a chest x-ray that showed pulmonary masses, and a history and physical examination by Dr. Palacios is reviewed. ASSESSMENT AND PLAN: A 57-year-old male with facial bone cancer with metastasis to lung, status post chemotherapy, presenting with fevers, although no fever has been documented here with tachycardia, leukocytosis, systemic inflammatory response syndrome. Blood and urine cultures have been ordered. The patient is started on cefepime by Dr. Butler and vancomycin, azithromycin, Solu-Medrol pending blood cultures, urine cultures, sputum cultures. We will also add an MRSA screening, and we will also add an HIV because of his age. Procalcitonin and urine for Legionella antigen. We will follow closely with you. Overall prognosis is quite poor for this man probably secondary to underlying malignancy with LFT elevations and alk phos elevation. The patient's creatinine is at 1.3. We are concerned about the vancomycin use. It was 1.5, and the patient's EKG shows a QTc of 411. We will follow closely with you. If the blood cultures are negative and a MRSA screen is negative, we will discontinue the vancomycin, minimize nephrotoxicity in a patient who already has renal insufficiency. Earnest Fuentes MD
[2017-12-12] MEDS: Cefepime 1gm in NS 100ml 1 GM/100 ML BAG IVPB SCH ×2 (05:46→13:10)
[2017-12-12] MEDS: Levothyroxine 75 MCG TAB PO SCH (05:46)
[2017-12-12 07:43] VITALS: BP 133/89; PULSE 96; TEMP 98; O2SAT 97
[2017-12-12] MEDS: Insulin Lispro (humaLOG) LOW Coverage SC SCH ×2 (07:49→13:11)
[2017-12-12 07:50] LABS: BASO # 0.03 K/mm3 (0.0-2.0); BASO % 0.2 % (0.0-3.0); EOS # 0.1 (0.0-0.7); EOS % 0.6 % (1.5-5.0); GRAN # 13.17 (1.4-6.5); GRAN % 88.6 % (50.0-68.0); HEMOGLOBIN 11.5 g/dL (14.0-18.0); LYMPH # 1.2 (1.2-3.4); LYMPH % 8.1 % (22.0-35.0); MEAN CELL VOLUME 89.5 fl (80.0-105.0); MEAN CORPUSCULAR HEMOGLOBIN 29.6 pg (25.0-35.0); MEAN PLATELET VOLUME 9.9 fl (7.0-11.0); MONO # 0.4 (0.1-0.6); MONO % 2.5 % (1.0-6.0); RBC 3.89 10^6/uL (3.5-6.1); RED CELL DISTRIBUTION WIDTH 13.3 % (11.5-14.5); WHITE BLOOD COUNT 14.9 10^3/ul (4.5-11.0)
[2017-12-12 08:05] LABS: HEPATITIS B SURFACE AG Negative (NEGATIVE)
[2017-12-12 08:11] LABS: HEPATITIS B CORE AB NEGATIVE (NEGATIVE)
[2017-12-12 08:12] LABS: ALB/GLOB RATIO 0.9 (1.1-1.8); ALBUMIN 3.1 g/dL (3.0-4.8); ALT/SGPT 108 U/L (7-56); AST/SGOT 74 U/L (17-59); BLOOD UREA NITROGEN 19 mg/dL (7-21); CALCIUM 8.8 mg/dL (8.4-10.5); GFR NON-AFRICAN AMERICAN > 60
[2017-12-12 08:14] LABS: HEPATITIS A IGM NEGATIVE (NEGATIVE)
[2017-12-12 08:22] LABS: HEPATITIS C ANTIBODY NEGATIVE (NEGATIVE)
[2017-12-12] MEDS: MethylPREDNISolone 40 mg Vial IVP SCH (10:40)
--- NOTE | 2017-12-12 11:45 | CP.PCM.DIS ---
Provider - Provider Date of Admission: 12/10/17 19:44 Attending physician: Mohan Godfrey MD Primary care physician: Keyshawn Mustafa MD Consults: COLIN - Dr. Rebecca Abreu - Dr. Carrie Garrido Time Spent in preparation of Discharge (in minutes): 45 Diagnosis - Discharge Diagnosis (1) Fever Status: Resolved (2) Pneumonia Status: Acute (3) Cancer of face Status: Chronic (4) HTN (hypertension) Status: Chronic (5) Hypothyroidism Status: Chronic Hospital Course - Lab Results Lab Results: Micro Results 12/10/17 18:40 Urine Urine Culture - Final No Growth (<1,000 CFU/ML) 12/10/17 17:19 Blood Blood Culture - Preliminary NO GROWTH AFTER 24 HOURS Most Recent Lab Values WBC 14.9 10^3/ul (4.5-11.0) H 12/12/17 07:00 RBC 3.89 10^6/uL (3.5-6.1) 12/12/17 07:00 Hgb 11.5 g/dL (14.0-18.0) L 12/12/17 07:00 Hct 34.8 % (42.0-52.0) L 12/12/17 07:00 MCV 89.5 fl (80.0-105.0) 12/12/17 07:00 MCH 29.6 pg (25.0-35.0) 12/12/17 07:00 MCHC 33.0 g/dl (31.0-37.0) 12/12/17 07:00 RDW 13.3 % (11.5-14.5) 12/12/17 07:00 Plt Count 374 10^3/uL (120.0-450.0) 12/12/17 07:00 MPV 9.9 fl (7.0-11.0) 12/12/17 07:00 Gran % 88.6 % (50.0-68.0) H 12/12/17 07:00 Lymph % (Auto) 8.1 % (22.0-35.0) L 12/12/17 07:00 [place] % (Auto) 2.5 % (1.0-6.0) 12/12/17 07:00 Eos % (Auto) 0.6 % (1.5-5.0) L 12/12/17 07:00 Baso % (Auto) 0.2 % (0.0-3.0) 12/12/17 07:00 Gran # 13.17 (1.4-6.5) H 12/12/17 07:00 Lymph # (Auto) 1.2 (1.2-3.4) 12/12/17 07:00 [place] # (Auto) 0.4 (0.1-0.6) 12/12/17 07:00 Eos # (Auto) 0.1 (0.0-0.7) 12/12/17 07:00 Baso # (Auto) 0.03 K/mm3 (0.0-2.0) 12/12/17 07:00 pO2 37 mm/Hg (30-55) 12/10/17 18:12 VBG pH 7.39 (7.32-7.43) 12/10/17 18:12 VBG pCO2 46.0 (40-60) 12/10/17 18:12 VBG HCO3 27.8 mmol/l (21-28) 12/10/17 18:12 VBG Total CO2 29.2 mmol.L (22-28) H 12/10/17 18:12 VBG O2 Sat (Calc) 74.9 % (40-65) H 12/10/17 18:12 VBG Base Excess 2.2 mmol/L (0.0-2.0) H 12/10/17 18:12 VBG Potassium 4.3 mmol/L (3.6-5.2) 12/10/17 18:12 Sodium 133.0 mmol/L (132-148) 12/10/17 18:12 Chloride 101.0 mmol/L (98-107) 12/10/17 18:12 Glucose 102 mg/dl (75-110) 12/10/17 18:12 Lactate 1.0 mmol/L (0.7-2.1) 12/10/17 18:12 FiO2 21.0 % 12/10/17 18:12 Sodium 139 mmol/L (132-148) 12/12/17 07:00 Potassium 4.5 mmol/L (3.6-5.0) 12/12/17 07:00 Chloride 109 mmol/L (98-107) H 12/12/17 07:00 Carbon Dioxide 23 mmol/L (21-33) 12/12/17 07:00 Anion Gap 11 (10-20) 12/12/17 07:00 BUN 19 mg/dL (7-21) 12/12/17 07:00 Creatinine 1.1 mg/dl (0.8-1.5) 12/12/17 07:00 Est GFR ( Amer) > 60 12/12/17 07:00 Est GFR (Non-Af Amer) > 60 12/12/17 07:00 POC Glucose (mg/dL) 112 mg/dL (65-110) H 12/11/17 17:15 Random Glucose 144 mg/dL (70-110) H 12/12/17 07:00 Hemoglobin A1c 5.5 % (4.2-6.5) 12/11/17 07:00 Calcium 8.8 mg/dL (8.4-10.5) 12/12/17 07:00 Phosphorus 3.1 mg/dL (2.5-4.5) 12/11/17 07:00 Magnesium 2.3 mg/dL (1.7-2.2) H 12/11/17 07:00 Total Bilirubin 0.5 mg/dL (0.2-1.3) 12/12/17 07:00 Direct Bilirubin 1.0 mg/dL (0.0-0.4) H 12/10/17 18:03 GGT 225 U/L (8-78) H 12/10/17 18:00 AST 74 U/L (17-59) H D 12/12/17 07:00 ALT 108 U/L (7-56) H 12/12/17 07:00 Alkaline Phosphatase 159 U/L (38-126) H 12/12/17 07:00 Total Creatine Kinase 116 U/L (35-230) 12/11/17 10:00 Troponin I < 0.01 ng/mL 12/11/17 07:00 C-Reactive Protein 260.30 mg/L (0.0-9.9) H 12/11/17 07:00 NT-Pro-B Natriuret Pep 55.2 pg/mL (0-450) 12/11/17 07:00 Total Protein 6.7 g/dL (5.8-8.3) 12/12/17 07:00 Albumin 3.1 g/dL (3.0-4.8) 12/12/17 07:00 Globulin 3.6 gm/dL 12/12/17 07:00 Albumin/Globulin Ratio 0.9 (1.1-1.8) L 12/12/17 07:00 Triglycerides 258 mg/dL (35-160) H 12/11/17 07:00 Cholesterol 123 mg/dL (130-200) L 12/11/17 07:00 LDL Cholesterol Direct 60 mg/dL (0-129) 12/11/17 07:00 HDL Cholesterol 18 mg/dL (29-60) L 12/11/17 07:00 Procalcitonin 0.57 NG/ML (0.19-0.49) H 12/10/17 18:03 Free T4 0.66 ng/dL (0.78-2.19) L 12/11/17 07:00 TSH 3rd Generation 2.55 mIU/mL (0.46-4.68) 12/11/17 07:00 Venous Blood Potassium 4.3 mmol/L (3.6-5.2) 12/10/17 18:12 Urine Color Yellow (YELLOW) 12/11/17 14:00 Urine Appearance Clear (CLEAR) 12/11/17 14:00 Urine pH 5.5 (4.7-8.0) 12/11/17 14:00 Ur Specific [place] <= 1.005 (1.005-1.035) 12/11/17 14:00 Urine Protein Negative mg/dL (<30 mg/dL) 12/11/17 14:00 Urine Glucose (UA) Negative mg/dL (NEGATIVE) 12/11/17 14:00 Urine Ketones Negative mg/dL (NEGATIVE) 12/11/17 14:00 Urine Blood Trace-intact (NEGATIVE) H 12/11/17 14:00 Urine Nitrate Negative (NEGATIVE) 12/11/17 14:00 Urine Bilirubin Negative (NEGATIVE) 12/11/17 14:00 Urine Urobilinogen >=8.0 E.U./dL (<1 E.U./dL) 12/11/17 14:00 Ur Leukocyte Esterase Negative [place]/uL (NEGATIVE) 12/11/17 14:00 Urine RBC 0 - 2 /hpf (0-2) 12/11/17 14:00 Urine WBC 0 - 2 /hpf (0-6) 12/11/17 14:00 Ur Epithelial Cells 0 - 2 /hpf (0-5) 12/11/17 14:00 Urine Bacteria Neg (NEG) 12/11/17 14:00 Hepatitis A IgM Ab Negative (NEGATIVE) 12/10/17 18:03 Hep Bs Antigen Negative (NEGATIVE) 12/10/17 18:03 Hep B Core IgM Ab Negative (NEGATIVE) 12/10/17 18:03 Hepatitis C Antibody Negative (NEGATIVE) 12/10/17 18:03 Influenza Typ A,B (EIA) Negative for flu a/b (NEGATIVE) 12/10/17 18:43 Ur L.pneumophila Ag Negative (NEGATIVE) 12/11/17 14:00 - Hospital Course Hospital Course: 57 yo male with PMHx of HTN, HLD, hypothyroidism, facial cancer diagnosed in 2010 that metastasized to lungs and currently getting experimental chemotherapy treatments every two weeks in [facility] at [facility] (last dose 12/01) was admitted for possible community acquired pneumonia. Patient was evaluated by GI, ID, and Pulmonology. Patient was started on Vancomycin, Azithromycin, Cefepime, and solumedrol 20 mg q12. Patient improved with no fevers in the hospital. Blood cultures negative after 24 hours. Abdomen ultrasound was negative. Left shoulder x-ray was negative. Echocardiogram displayed normal EF with no abnormalities. 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 Patient would like to pursue biopsy at [facility] where he receives his chemotherapy. Patient has an Oncology follow up appointment on 12/15/17. Patient will be discharged on Levaquin and Medrol dose pack. Discharge Exam - Head Exam Head Exam: NORMAL INSPECTION - Eye Exam Eye Exam: EOMI - Respiratory Exam Respiratory Exam: Decreased Breath Sounds. absent: Rales, Rhonchi, Wheezes - Cardiovascular Exam Cardiovascular Exam: RRR, +S1, +S2 - GI/Abdominal Exam GI & Abdominal Exam: Normal Bowel Sounds, Soft, Unremarkable. absent: Tenderness - Extremities Exam Extremities exam: normal inspection - Neurological Exam Neurological exam: Alert, CN II-XII Intact, Oriented x3 - Psychiatric Exam Psychiatric exam: Normal Affect, Normal Mood - Skin Skin Exam: Intact, Normal Color, Warm Discharge Plan - Discharge Medications Prescriptions: Levofloxacin [Levaquin] 750 mg PO DAILY #3 tablet Methylprednisolone [Medrol Dose Pack (21 tabs)] 4 mg PO DAILY #21 mg - Follow Up Plan Condition: STABLE Disposition: HOME/ ROUTINE Instructions: Pneumonia in Adults, Lung Cancer
--- NOTE | 2017-12-12 17:41 | PN ---
DATE: 12/12/2017 SUBJECTIVE: The patient is lying in bed comfortable. He wants to go home. He denies any further fevers or chills. He denies any new rash. PHYSICAL EXAMINATION: VITAL SIGNS: Reveal temperature of 98, T-max of 100.3, blood pressure 133/89. HEENT: Reveal sclerae to be white. Conjunctivae pink. NECK: Supple. CHEST: Reveals lungs to be clear. HEART: Reveals a regular rate and rhythm. ABDOMEN: Soft, nontender. There is no mass along the left paramedian scar. EXTREMITIES: Show no edema. LABORATORY DATA: Reveals white blood cell count 14.9, hemoglobin 11.5. Chemistries reveal AST down to 74, ALT 108, alkaline phosphatase of 159. CT scan of the abdomen reveals no obvious liver masses. There is evidence of hepatic steatosis with variable contrast enhancing characteristics mostly in the right lobe of the liver. There is also asymmetry of the right abdominal rectus muscle. There is a concern for neoplasm. The patient did have abdominal wall surgery to recreate his right zygomatic area after his facial surgery years ago. IMPRESSION: 1. Elevated liver enzymes, etiology unclear. The patient does have history of right facial cancer with metastasis to the lungs. His liver enzymes are trending downward. 2. Fever, rule out systemic inflammatory response syndrome versus sepsis. Note, the patient does have fatty liver on CAT scan. RECOMMENDATIONS: Continue supportive care. His long-term a prognosis is poor. Shashi Garrido MD
--- NOTE | 2017-12-12 19:12 | PN ---
DATE: 12/12/2017 SUBJECTIVE: The patient is in bed, in no acute distress, nontoxic. PHYSICAL EXAMINATION: VITAL SIGNS: Temperature is 98, T-max yesterday was 100.3, heart rate of 96, blood pressure is 133/80, respiratory rate 20. HEENT: Unremarkable. NECK: Supple. LUNGS: Decreased breath sounds. HEART: Normal S1, S2. ABDOMEN: Soft, nontender. LABORATORY EXAMINATION: Reveals a white count of 14,900, hemoglobin of 11. Chemistries reveal a BUN of 19, creatinine of 1.1. LFTs are noted. C-reactive protein is 260. Urinalysis is noted. Serology is noted. Microbiology reveals the blood cultures are negative. ASSESSMENT AND PLAN: A 57-year-old male who has facial bone cancer with metastases to the lung, facial surgery, right zygoma, status post chemotherapy, had fevers, generalized aches and pains, and admitted with systemic inflammatory response syndrome. On vancomycin, cefepime, and Zithromax day #2. The patient is also on Solu-Medrol. Thus far, the microbiology reveals the blood cultures are negative. Methicillin resistant staphylococcus aureus screen is pending. Urine culture is pending. Sputum culture is pending. Human immunodeficiency virus is pending. Streptococcal pneumonia urine antigen is pending. The patient is also on Solu-Medrol. The patient had a chest x-ray, for which the results are pending CAT scan of the chest reveals the pulmonary masses. CAT scan of the abdomen is noted. The patient does have extensive pulmonary metastases with negative urine antigen, negative influenza, negative hepatitis profile, negative urinalysis. There is LFT elevation, elevated C-reactive protein, and mildly elevated procalcitonin of 0.57. We will discontinue the IV Zithromax and use p.o. doxycycline. Pending further workup and the blood cultures are reported to be negative at 24 hours. We will be discontinuing the vancomycin within the next 24 hours also if the blood cultures remain negative. Earnest Fuentes MD
--- NOTE | 2017-12-14 15:16 | RAD ---
HISTORY: bilateral infiltrate on previous CXR COMPARISON: Comparison to chest x-ray performed 12/10/17 TECHNIQUE: Chest PA and lateral FINDINGS: Examination limited by habitus and hypoinflation. LUNGS: Innumerable pulmonary masses and nodules consistent with metastatic disease. PLEURA: No significant pleural effusion identified. No definite pneumothorax . CARDIOVASCULAR: Heart size appears within normal limits. No atherosclerotic calcification present. OSSEOUS STRUCTURES: Degenerative changes. VISUALIZED UPPER ABDOMEN: Unremarkable. OTHER FINDINGS: None. IMPRESSION: Innumerable pulmonary masses and nodules consistent with metastatic disease.
[2017-12-15 22:30] LABS: SOURCE SERUM
== END 2017-12-12 15:48 | disposition home or self-care (01) | DRG 194 ==
LOC: ED 16:58 → ERH 19:44 → 3RNO 22:29
PROVIDERS: ADMIT Internal Medicine; ATTEND Internal Medicine
DX: J18.9 Pneumonia, unspecified organism (principal); C78.02 Secondary malignant neoplasm of left lung; C78.01 Secondary malignant neoplasm of right lung; C41.9 Malignant neoplasm of bone and articular cartilage, unspecified; R65.10 Systemic inflammatory response syndrome (SIRS) of non-infectious origin without acute organ dysfunction; E03.9 Hypothyroidism, unspecified; E78.00 Pure hypercholesterolemia, unspecified; I10 Essential (primary) hypertension; E78.5 Hyperlipidemia, unspecified; K76.0 Fatty (change of) liver, not elsewhere classified; L29.9 Pruritus, unspecified; M25.512 Pain in left shoulder; Z87.891 Personal history of nicotine dependence